=== PATIENT | male | born 1975 | race Caucasian/White ===

== ENCOUNTER 2019-06-14 12:04 | Emergency (ER) | payer BC ==
[2019-06-14 12:10] VITALS: RESP 18
--- NOTE | 2019-06-14 12:45 | ED ---
Abdominal Pain HPI - General Chief Complaint: Abdominal Pain Stated Complaint: Abd Pain Time Seen by Provider: 06/14/19 12:11 Source: patient Mode of arrival: ambulatory Limitations: no limitations - History of Present Illness Initial Comments: The patient is a 43 old male presents to the emergency department with reported left-sided flank pain. He states his symptoms started on Sunday. It is described as a sharp shooting sensation which radiates around into his left groin. He has associated dysuria. Denies any hematuria or difficulty voiding. No fevers or chills. No history of similar past. He has been increasing his fluid intake and taking Motrin which he states does help his symptoms. He denies any anterior abdominal pain. No diarrhea or constipation. Does report that he had an episode of bright red blood per rectum last week. He attributed it to hemorrhoids. States it is bright red and only visualized when he wiped. He admitted to some slight rectal pain which has improved. He denies any nausea or vomiting. No ripping or tearing sensation to his back. His symptoms were improving but then recurred today. He did make an appointment Dr. Atwood however does not see him for a couple of weeks. There are no alleviating, precipitating or modifying factors - Related Data Home Medications Medication Instructions Recorded Confirmed Melatonin 10 mg PO HS 06/14/19 06/14/19 Previous Rx's Medication Instructions Recorded Tamsulosin [Flomax] 0.4 mg PO DAILY #10 cap 06/14/19 Allergies Allergy/AdvReac Type Severity Reaction Status Date / Time amoxicillin Allergy Nausea & Verified 06/14/19 13:10 Vomiting & Diarrhea Review of Systems ROS Statement: Those systems with pertinent positive or pertinent negative responses have been documented in the HPI. ROS Other: All systems not noted in ROS Statement are negative. Past Medical History Past Medical History: No Reported History History of Any Multi-Drug Resistant Organisms: None Reported Past Surgical History: Appendectomy, Hernia Repair Past Psychological History: No Psychological Hx Reported Smoking Status: Never smoker Past Alcohol Use History: Rare Past Drug Use History: None Reported General Exam Limitations: no limitations General appearance: alert, in no apparent distress Head exam: Present: atraumatic, normocephalic, normal inspection Eye exam: Present: normal appearance, PERRL, EOMI. Absent: scleral icterus, conjunctival injection, periorbital swelling ENT exam: Present: normal exam, mucous membranes moist Neck exam: Present: normal inspection. Absent: tenderness, meningismus, lymphadenopathy Respiratory exam: Present: normal lung sounds bilaterally. Absent: respiratory distress, wheezes, rales, rhonchi, stridor Cardiovascular Exam: Present: regular rate, normal rhythm, normal heart sounds. Absent: systolic murmur, diastolic murmur, rubs, gallop, clicks GI/Abdominal exam: Present: soft, normal bowel sounds. Absent: distended, tenderness, guarding, rebound, rigid Extremities exam: Present: normal inspection, full ROM, normal capillary refill. Absent: tenderness, pedal edema, joint swelling, calf tenderness Back exam: Present: normal inspection, other (positive Llyods sign on the left) Neurological exam: Present: alert, oriented X3, CN II-XII intact Psychiatric exam: Present: normal affect, normal mood Skin exam: Present: warm, dry, intact, normal color. Absent: rash Course Vital Signs 06/14/19 06/14/19 12:06 15:15 Temperature 97.9 F 98.0 F Pulse Rate 64 60 Respiratory 18 18 Rate Blood Pressure 140/89 126/82 O2 Sat by Pulse 98 98 Oximetry Medical Decision Making - Medical Decision Making Upon arrival the patient is placed into room 11. He is hooked up to continuous pulse ox and cardiac monitoring. Peripheral IV is established. The patient is offered something for pain control and he does agree to Toradol. Laboratory studies were conducted and the patient provides a urine sample. He was then sent for a CT of his abdomen and pelvis. Upon return the results are discussed with the patient. His urine is positive for red blood cells and triple phos phate crystals. Blood work is unremarkable. CT of abdomen and pelvis demonstrates a 4 mm calculus in the left distal ureter. I did discuss the results with the patient. As his pain is under control and there is no evidence of kidney injury or infection, the patient will be discharged home. He is given a prescription for Flomax and a strainer. He is to take Motrin as needed for pain control. He is to follow-up with Dr. Atwood. If the patient has any new or worsening symptoms, he should return to the emergency room. Patient was in agreement treatment plan and discharge home in stable condition - Lab Data Result diagrams: 06/14/19 12:12 08/31/19 12:12 Lab Results 06/14/19 06/14/19 06/14/19 Range/Units 12:12 12:12 12:12 WBC 5.1 (3.8-10.6) k/uL RBC 5.07 (4.30-5.90) m/uL Hgb 16.7 (13.0-17.5) gm/dL Hct 49.4 (39.0-53.0) % MCV 97.3 (80.0-100.0) fL MCH 32.9 (25.0-35.0) pg MCHC 33.8 (31.0-37.0) g/dL RDW 13.7 (11.5-15.5) % Plt Count 223 (150-450) k/uL Neutrophils % 66 % Lymphocytes % 22 % Monocytes % 8 % Eosinophils % 2 % Basophils % 1 % Neutrophils # 3.4 (1.3-7.7) k/uL Lymphocytes # 1.1 (1.0-4.8) k/uL Monocytes # 0.4 (0-1.0) k/uL Eosinophils # 0.1 (0-0.7) k/uL Basophils # 0.0 (0-0.2) k/uL PT (9.0-12.0) sec INR (<1.2) Sodium 139 (137-145) mmol/L Potassium 4.8 (3.5-5.1) mmol/L Chloride 102 (98-107) mmol/L Carbon Dioxide 27 (22-30) mmol/L Anion Gap 10 mmol/L BUN 18 (9-20) mg/dL Creatinine 1.17 (0.66-1.25) mg/dL Est GFR (CKD-EPI)AfAm 87 (>60 ml/min/1.73 sqM) Est GFR (CKD-EPI)NonAf 75 (>60 ml/min/1.73 sqM) Glucose 89 (74-99) mg/dL Plasma Lactic Acid Pepe (0.7-2.0) mmol/L Calcium 9.8 (8.4-10.2) mg/dL Total Bilirubin 0.5 (0.2-1.3) mg/dL AST 30 (17-59) U/L ALT 34 (21-72) U/L Alkaline Phosphatase 88 (38-126) U/L Total Protein 8.0 (6.3-8.2) g/dL Albumin 4.8 (3.5-5.0) g/dL Urine Color Yellow Urine Appearance Turbid (Clear) Urine pH 5.5 (5.0-8.0) Ur Specific [place] 1.014 (1.001-1.035) Urine Protein Negative (Negative) Urine Glucose (UA) Negative (Negative) Urine Ketones Negative (Negative) Urine Blood Trace H (Negative) Urine Nitrite Negative (Negative) Urine Bilirubin Negative (Negative) Urine Urobilinogen <2.0 (<2.0) mg/dL Ur Leukocyte Esterase Negative (Negative) Urine RBC 4 (0-5) /hpf Urine WBC 1 (0-5) /hpf Triple Phos Crystals Many H (None) /hpf Urine Mucus Rare H (None) /hpf Stool Occult Blood (Negative) 06/14/19 06/14/19 06/14/19 Range/Units 12:12 12:12 12:12 WBC (3.8-10.6) k/uL RBC (4.30-5.90) m/uL Hgb (13.0-17.5) gm/dL Hct (39.0-53.0) % MCV (80.0-100.0) fL MCH (25.0-35.0) pg MCHC (31.0-37.0) g/dL RDW (11.5-15.5) % Plt Count (150-450) k/uL Neutrophils % % Lymphocytes % % Monocytes % % Eosinophils % % Basophils % % Neutrophils # (1.3-7.7) k/uL Lymphocytes # (1.0-4.8) k/uL Monocytes # (0-1.0) k/uL Eosinophils # (0-0.7) k/uL Basophils # (0-0.2) k/uL PT 9.9 (9.0-12.0) sec INR 0.9 (<1.2) Sodium (137-145) mmol/L Potassium (3.5-5.1) mmol/L Chloride (98-107) mmol/L Carbon Dioxide (22-30) mmol/L Anion Gap mmol/L BUN (9-20) mg/dL Creatinine (0.66-1.25) mg/dL Est GFR (CKD-EPI)AfAm (>60 ml/min/1.73 sqM) Est GFR (CKD-EPI)NonAf (>60 ml/min/1.73 sqM) Glucose (74-99) mg/dL Plasma Lactic Acid Pepe 1.3 (0.7-2.0) mmol/L Calcium (8.4-10.2) mg/dL Total Bilirubin (0.2-1.3) mg/dL AST (17-59) U/L ALT (21-72) U/L Alkaline Phosphatase (38-126) U/L Total Protein (6.3-8.2) g/dL Albumin (3.5-5.0) g/dL Urine Color Urine Appearance (Clear) Urine pH (5.0-8.0) Ur Specific [place] (1.001-1.035) Urine Protein (Negative) Urine Glucose (UA) (Negative) Urine Ketones (Negative) Urine Blood (Negative) Urine Nitrite (Negative) Urine Bilirubin (Negative) Urine Urobilinogen (<2.0) mg/dL Ur Leukocyte Esterase (Negative) Urine RBC (0-5) /hpf Urine WBC (0-5) /hpf Triple Phos Crystals (None) /hpf Urine Mucus (None) /hpf Stool Occult Blood Negative (Negative) Disposition Clinical Impression: Abdominal pain, Dysuria, Left ureteral stone Disposition: HOME SELF-CARE Condition: Stable Instructions (If sedation given, give patient instructions): Kidney Stones (ED) Additional Instructions: Please follow-up with Dr. Atwood at your scheduled appointment. Strain all of your urine. I take Motrin and Tylenol for pain. Increase fluid intake. Take Flomax as directed. Return to the department for any new or worsening symptoms Prescriptions: Tamsulosin [Flomax] 0.4 mg PO DAILY #10 cap Is patient prescribed a controlled substance at d/c from ED?: No Referrals: None,Stated [Primary Care Provider] - 1-2 days Moises Atwood MD [STAFF PHYSICIAN] - 1-2 days Time of Disposition: 14:59
[2019-06-14 13:23] LABS: Basophils % (A) 1 %; Eosinophils # (A) 0.1 k/uL (0-0.7); Eosinophils % (A) 2 %; HCT 49.4 % (39.0-53.0); HGB 16.7 gm/dL (13.0-17.5); Lymphocytes # (A) 1.1 k/uL (1.0-4.8); Lymphocytes % (A) 22 %; MCH 32.9 pg (25.0-35.0); MCHC 33.8 g/dL (31.0-37.0); MCV 97.3 fL (80.0-100.0); Mean Platelet Volume 7.7; Monocytes # (A) 0.4 k/uL (0-1.0); Monocytes % (A) 8 %; Neutrophils # (A) 3.4 k/uL (1.3-7.7); Neutrophils % (A) 66 %; Platelet Count 223 k/uL (150-450); RBC 5.07 m/uL (4.30-5.90); RDW 13.7 % (11.5-15.5); WBC 5.1 k/uL (3.8-10.6)
--- NOTE | 2019-06-14 13:28 | CT ---
EXAMINATION TYPE: CT abdomen pelvis w con DATE OF EXAM: 06/14/2019 COMPARISON: NONE HISTORY: 43-year-old male Left flank pain, urination urgency, dysuria. TECHNIQUE: Contiguous axial scanning of the abdomen and pelvis following administration of 100 ml Iso nain 300 IV contrast. Delayed images through the kidneys and coronal/sagittal reconstructions perform ed. CT DLP: 1244.1 mGycm Automated exposure control for dose reduction was used. FINDINGS: Heart normal size without pericardial effusion. Heart normal size without pericardial effusion. Lung bases clear without pleural effusion. Tiny hiatal hernia. Subcentimeter hypodensity lateral right liver lobe to small fractured CT characterization, likely cys t. Portal venous system is patent. No biliary ductal dilatation. Gallbladder, adrenal glands, spleen, and pancreas appear within normal limits. Parapelvic cysts are present in the kidneys, left greater than right, measuring up to 3.7 cm on the l eft. Slightly delayed excretion of contrast from the left kidney with mild pelvocaliectasis and a 4 mm donovan culus at the distal third left ureter. No dilated small bowel, free fluid, or free air. Scattered nonenlarged mesenteric lymph nodes are dem onstrated. Some surgical material along the right lower quadrant from prior appendectomy. Mild overall stool bur den. Sigmoid diverticulosis. No pericolonic inflammatory change. Bladder urine distended. Prostate gland mildly prominent at 4.5 cm wide. Multiple pelvic phleboliths. No abnormal fluid collection in the pelvis or pelvic lymphadenopathy. Bones: No osseous destructive process. IMPRESSION: 1. 4 MM CALCULUS IN THE DISTAL THIRD LEFT URETER WITH VERY MILD OBSTRUCTIVE UROPATHY. 2. BILATERAL PELVIC CYSTS IN THE KIDNEYS, LEFT GREATER THAN RIGHT MEASURING UP TO 3.7 CM. 3. SIGMOID DIVERTICULOSIS WITHOUT ACUTE DIVERTICULITIS.
[2019-06-14 13:29] LABS: Albumin 4.8 g/dL (3.5-5.0); Calcium 9.8 mg/dL (8.4-10.2); Potassium 4.8 mmol/L (3.5-5.1); Total Bilirubin 0.5 mg/dL (0.2-1.3)
[2019-06-14 13:37] LABS: Appearance,Urine Turbid (Clear); Bilirubin,Urine Negative (Negative); Blood,Urine Trace (Negative); Color,Urine Yellow; Glucose,Urine (UA) Negative (Negative); Ketones,Urine Negative (Negative); Leukocyte Esterase,Urine Negative (Negative); Mucus,Urine Rare /hpf; Nitrite,Urine Negative (Negative); PH, Urine 5.5 (5.0-8.0); Protein,Urine Negative (Negative); RBC,Urine 4 /hpf (0-5); Specific Gravity,Urine 1.014 (1.001-1.035); Triple Phosphate Crystal,Urine Many /hpf; Urobilinogen,Urine <2.0 mg/dL (<2.0)
[2019-06-14 13:42] LABS: INR 0.9 (<1.2); Prothrombin Time 9.9 sec (9.0-12.0)
[2019-06-14 15:16] VITALS: BP 126/82; PULSE 60; TEMP 98
== END 2019-06-14 15:16 | disposition home or self-care (01) ==
LOC: EC 12:04
DX: N20.1 Calculus of ureter (principal); Z79.899 Other long term (current) drug therapy; Z88.0 Allergy status to penicillin; Z90.89 Acquired absence of other organs
CPT/HCPCS: 99284; 36415; 80053; 83605; 85025; 85610; 82272; 81001; 74177; Q9967